=== PATIENT | female | born 1995 | race Caucasian/White ===

== ENCOUNTER 2020-07-13 21:44 | Emergency (ER) | payer OTHER ==
[~2020-07-13] VITALS: Ht 182.9 cm; Wt 68.5 kg
[2020-07-14] MEDS ORDERED: FLUCONAZOLE150 MG PO (02:32)
== END 2020-07-14 02:39 | disposition home or self-care (01) ==
LOC: ER 21:44
DX: B37.3 Candidiasis of vulva and vagina (principal)